=== PATIENT | female | born 1950 | race Caucasian/White ===

== ENCOUNTER → 2017-02-23 | Outpatient (CLI) | payer MEDICARE | LOC: CT 10:26 | DX: R22.2 Localized swelling, mass and lump, trunk (principal) | CPT/HCPCS: 71250 ==

== ENCOUNTER → 2017-02-24 | Outpatient (CLI) | payer MEDICARE | LOC: MAMO 13:00 | DX: Z12.31 Encounter for screening mammogram for malignant neoplasm of breast (principal) | CPT/HCPCS: G0202 ==

== ENCOUNTER → 2017-03-24 | Outpatient (CLI) | payer MEDICARE | LOC: HEART 5 08:25 | DX: I20.9 Angina pectoris, unspecified (principal); I48.91 Unspecified atrial fibrillation | CPT/HCPCS: 78452; 93306; A9502 ==

== ENCOUNTER → 2020-10-30 | Outpatient (CLI) | payer MEDICARE ==
[~2020-10-30] MED LIST: CATAPRES 0.1MG0.1 MG PO; ELIQUIS5 M1 PO; IBUPROFEN600 MG PO; LOSARTAN POTAS100 MG PO; PEPCID20 MG PO; PROAIR DIGIHAL90 MCG INH; VITAMIN C1000 M2 PO; ZITHROMAX250 MG PO
== END ==
LOC: KOH-I 12:37
DX: M54.5 Low back pain (principal); M47.814 Spondylosis without myelopathy or radiculopathy, thoracic region; M47.816 Spondylosis without myelopathy or radiculopathy, lumbar region
CPT/HCPCS: 72070; 72100

== ENCOUNTER 2021-04-20 22:04 | Emergency (ER) | payer MEDICARE ==
[~2021-04-20 22:04] MED LIST changes: -ELIQUIS5 M1 PO
[2021-04-20 22:52] LABS: RED BLOOD COUNT 4.42 M/UL (4.00-5.10)
[2021-04-20 23:04] LABS: BUN/CREATININE RATIO 22 (0-10)
[2021-04-21] MEDS ORDERED: ELIQUIS5 M1 PO (00:34)
== END 2021-04-21 00:55 | disposition home or self-care (01) ==
LOC: ER1 22:04
PROVIDERS: Emergency Medicine
DX: I48.91 Unspecified atrial fibrillation (principal); I10 Essential (primary) hypertension; E07.9 Disorder of thyroid, unspecified
CPT/HCPCS: 71045; 80053; 82550; 82553; 83735; 83874; 83880; 84439; 84443; 84484; 85025; 85610; 85730; 93005; 99285

== ENCOUNTER → 2021-04-29 | Outpatient (CLI) | payer MEDICARE ==
[~2021-04-29] MED LIST changes: +ELIQUIS5 M1 PO
== END ==
LOC: HEART 5 09:35
DX: I48.91 Unspecified atrial fibrillation (principal); R00.2 Palpitations; R07.9 Chest pain, unspecified

== ENCOUNTER → 2021-11-11 | Outpatient (CLI) | payer MEDICARE | LOC: KOH-I 12:12 | DX: J40 Bronchitis, not specified as acute or chronic (principal) | CPT/HCPCS: 71046 ==

== ENCOUNTER → 2021-11-18 | Outpatient (CLI) | payer MEDICARE ==
[2021-11-18 10:37] LABS: BORDETELLA PARAPERTUSSIS Not Detected (Not Detectd); BORDETELLA PERTUSSIS Not Detected (Not Detectd); CHLAMYDIA PNEUMONIAE Not Detected (Not Detectd); CORONAVIRUS HKU1 Not Detected (Not Detectd); CORONAVIRUS NL63 Not Detected (Not Detectd); CORONAVIRUS OC43 Not Detected (Not Detectd); CORONOAVIRUS 229E Not Detected (Not Detectd); HUMAN METAPNEUMOVIRUS Not Detected (Not Detectd); HUMAN RHINOVIRUS/ENTEROVIRUS Not Detected (Not Detectd); INFLUENZA A Not Detected (Not Detectd); INFLUENZA B Not Detected (Not Detectd); MYCOPLASMA PNEUMONIAE Not Detected (Not Detectd); PARAINFLUENZA VIRUS 1 Not Detected (Not Detectd); PARAINFLUENZA VIRUS 2 Not Detected (Not Detectd); PARAINFLUENZA VIRUS 3 Not Detected (Not Detectd); PARAINFLUENZA VIRUS 4 Not Detected (Not Detectd); RESPIRATORY SYNCYTIAL VIRUS Not Detected (Not Detectd)
[2021-11-18 12:25] LABS: SARS-CoV-2 NOT DETECTED (Not Detectd)
== END ==
LOC: LAB 10:21
PROVIDERS: Nurse Practitioner Family
DX: J40 Bronchitis, not specified as acute or chronic (principal); Z20.822 Contact with and (suspected) exposure to COVID-19
CPT/HCPCS: 87633

== ENCOUNTER → 2021-12-04 | Outpatient (CLI) | payer MEDICARE | LOC: EXRD 11:19 | DX: N17.9 Acute kidney failure, unspecified (principal) | CPT/HCPCS: 76775 ==

== ENCOUNTER → 2022-02-25 | Outpatient (CLI) | payer MEDICARE | LOC: HEART 5 14:56 | DX: I34.0 Nonrheumatic mitral (valve) insufficiency (principal); R06.02 Shortness of breath; R06.00 Dyspnea, unspecified ==

== ENCOUNTER 2022-03-24 08:31 | Emergency (ER) | payer MEDICARE ==
[2022-03-24] MEDS ORDERED: HYDROCODON-ACE1 EAC4 PO (11:12)
[2022-03-24] MEDS ORDERED: MEDROL4 MG PO (11:12)
== END 2022-03-24 11:47 | disposition home or self-care (01) ==
LOC: ER1 08:31
DX: M54.41 Lumbago with sciatica, right side (principal); I48.91 Unspecified atrial fibrillation; Z79.01 Long term (current) use of anticoagulants; I10 Essential (primary) hypertension; E78.5 Hyperlipidemia, unspecified; E07.9 Disorder of thyroid, unspecified; Z90.710 Acquired absence of both cervix and uterus
CPT/HCPCS: 72131; 73502; 99284; J2270